=== PATIENT | male | born 1965 | race Caucasian/White ===

== ENCOUNTER 2020-07-05 13:16 | Inpatient (IN) ==
[2020-07-05 14:09] LABS: ABG BASE EXCESS 3.9 mmol/L (-2.0-2.0); ABG HCO3 27.7 mmol/L (22-26)
[2020-07-05 14:10] LABS: ABG ALLEN TEST POS
--- NOTE | 2020-07-05 14:11 | RAD ---
HISTORYCough SOBSTUDYAP chestCOMPARISONNoneFINDINGSThe heart is upper normal in size. There are bilateral patchy-nodular pulmonary infiltrates throughout both lungs. There is no evidence for pneumothorax or pleural fluid. No adenopathy is seen.IMPRESSIONBilateral pulmonary densities consistent with extensive multifocal pneumonia.Electronically signed by: BHARAT RIVAS (Jul 05, 2020 14:09:52)
[2020-07-05 14:19] LABS: BASOPHILS % (AUTO) 0.1 % (0.2-1.0); HEMATOCRIT 41.2 % (42.0-54.0); LYMPHOCYTES # (AUTO) 0.5 X10^3/uL (1.3-2.9); LYMPHOCYTES % (AUTO) 6.4 % (21.0-51.0); MEAN CORPUSCULAR HEMOGLOBIN 29.7 pg (27.0-34.0); MEAN CORPUSCULAR HGB CONC 33.9 g/dL (33.0-35.0); MEAN CORPUSCULAR VOLUME 87.5 fL (80.0-100.0); MEAN PLATELET VOLUME 7.4 fL (7.4-11.0); MONOCYTES # (AUTO) 0.4 x10^3/uL (0.3-0.8); MONOCYTES % (AUTO) 5.3 % (0.0-13.0); NEUTROPHILS # (AUTO) 7.1 x10^3/uL (2.2-4.8); NEUTROPHILS % (AUTO) 88.2 % (42.0-75.0); PLATELET COUNT 183 X10^3/uL (150.0-450.0); RED BLOOD COUNT 4.71 X10^6/uL (4.7-6.0); RED CELL DISTRIBUTION WIDTH 14.9 % (11.6-16.5)
[2020-07-05] MEDS ORDERED: TESSALON PERLES PO ONE ×2 (14:27→14:53)
[2020-07-05] MEDS ORDERED: DECADRON INJ PRESERVATIVE-FREE IVP ONE (14:27)
[2020-07-05 14:33] LABS: ALANINE AMINOTRANSFERASE 52 Units/L (12-78); ALBUMIN 3.3 g/dL (3.4-5.0); ALKALINE PHOSPHATASE 59 Units/L (46-116); ASPARTATE AMINO TRANSFERASE 43 Units/L (15-37); BLOOD UREA NITROGEN 13 mg/dL (7-18); CALCIUM 8.7 mg/dL (8.5-10.1); CARBON DIOXIDE 25.9 mmol/L (21-32); CHLORIDE 99 mmol/L (98-107); COR CA(FOR HYPOALB) 9.3 mg/dL (8.5-10.1); COR NA(FOR HYPERGLY) 135 mmol/L (136-145); SODIUM 135 mmol/L (136-145); TOTAL PROTEIN 7.3 g/dL (6.4-8.2); eGFR NON BLACK RACES > 60 (>60)
[2020-07-05 14:39] LABS: LACTIC ACID 1.5 mmol/L (0.4-2.0)
--- NOTE | 2020-07-05 14:42 | DR.SOBA ---
HPI Time Seen Time Seen by Provider: 07/05/20 13:56 Primary Care Physician Primary Care Physician: DAKOTAH HPI Comment HPI Comment: According to pt he was diagnosed with covid 19 .has had several doses of azithromax,medrol dose pack and hydroxychloroquine.pt was feeling some better .Has noticed increased cough ,shortness of breath with decreased oxygen sat today.called his FP and was advised to come to Er Complaints Chief Complaint:: PT C/O INCREASED SHORTNESS OF BREATH AND INCREASED COUGHING. P T STATES HE WAS TESTED POSITIVE FOR THE COVID 10 DAYS AGO. PT STATES HE HAS BEEN ON THE ROUTINE COVID MEDICATION REGINEMENT, BUT IS NOT GETTING BETTER ONLY GETTING WORSE COVID-19 Coronavirus risk:travel/contact w/high risk person: Yes Has patient experienced Coronavirus symptoms: Yes Coronavirus symptoms experienced: Coughing and Shortness of Breath Source History Provided: Patient Mode of Arrival Mode of Arrival: Ambulatory Timing Onset of Chief Complaint: 07/02/20 PMH PMH Past Medical History: Yes Past Medical History: Dyslipidemia, GERD, Gout, Hypertension and Kidney Stones Past Surgical History: Yes Past Surgical History Comment: HERNIA REPAIR X2, Family History History of Family Medical Conditions: No Social History Does any household member use tobacco: No Alcohol Use: None Do you use any recreational Drugs:: No Lives With: Family Lives Where: Home Travel Risk Coronavirus risk:travel/contact w/high risk person: Yes Has patient experienced Coronavirus symptoms: Yes Coronavirus symptoms experienced: Coughing and Shortness of Breath Infectious screening In the last 2 months have you had wt loss of >10#?: NO Have you had fever, night sweats or hemotysis?: No Have you traveled outside the country in the last 6 months?: No Isolation: Droplet ROS Review of Systems Constitutional: Weakness Eyes: No Symptoms Reported ENTM: No Symptoms Reported Respiratoy: Dry Cough and Short of Breath Cardiovascular: No Symptoms Reported Gastrointestinal/Abdominal: No Symptoms Reported Genitourinary: No Symptoms Reported Neurological: No Symptoms Reported Musculoskeletal: Muscle Pain Integumentary: No Symptoms Reported Hematologic/Lymphatic: No Symptoms Reported Endocrine: No Symptoms Reported Psychiatric: No Symptoms Reported PE Vital Signs Vitals: Temperature 98.3 F Pulse Rate 111 Respiratory Rate 28 Blood Pressure 158/79 O2 Sat by Pulse Oximetry 93 General Limitations: No Limitations General Appearance: Alert, Anxious and In Distress Head Head Exam: Normal Inspection, Atraumatic and Normocephalic Eyes Eye exam: Normal Appearance and PERRL ENT ENT Exam: Normal Exam, Mucous Membranes Dry and Other (low lying oropharynx) Neck Neck Exam: Full ROM Respiratory Respiratory Exam: Normal Lung Sounds Bilat Cardiovascular Cardiovascular Exam: +S1 and +S2 Abdominal Exam Abdominal Exam: Normal Inspection Extremities Extremities Exam: Normal Inspection Neurologic Neurological Exam: Alert and Oriented X3 MDM Additional Information Obtained Additional Findings:: cough,hypoxia ,covid 19 pos ,shortness of breath COURSE Treatment Treatment: iv dexamethasone,tessalon perles ,oxygen 3l ROR Labs Reviewed Result Diagrams: 07/05/20 14:05 07/05/20 14:10 Laboratory: WBC 8.0 X10^3/uL (3.6-10.0) 07/05/20 14:05 RBC 4.71 X10^6/uL (4.7-6.0) 07/05/20 14:05 Hgb 14.0 g/dL (13.5-18.0) 07/05/20 14:05 Hct 41.2 % (42.0-54.0) L 07/05/20 14:05 MCV 87.5 fL (80.0-100.0) 07/05/20 14:05 MCH 29.7 pg (27.0-34.0) 07/05/20 14:05 MCHC 33.9 g/dL (33.0-35.0) 07/05/20 14:05 RDW 14.9 % (11.6-16.5) 07/05/20 14:05 Plt Count 183 X10^3/uL (150.0-450.0) 07/05/20 14:05 MPV 7.4 fL (7.4-11.0) 07/05/20 14:05 Neut % (Auto) 88.2 % (42.0-75.0) H 07/05/20 14:05 Lymph % (Auto) 6.4 % (21.0-51.0) L 07/05/20 14:05 Hood % (Auto) 5.3 % (0.0-13.0) 07/05/20 14:05 Eos % (Auto) 0.0 % (0.9-2.9) L 07/05/20 14:05 Baso % (Auto) 0.1 % (0.2-1.0) L 07/05/20 14:05 Neut # (Auto) 7.1 x10^3/uL (2.2-4.8) H 07/05/20 14:05 Lymph # (Auto) 0.5 X10^3/uL (1.3-2.9) L 07/05/20 14:05 Hood # (Auto) 0.4 x10^3/uL (0.3-0.8) 07/05/20 14:05 Eos # (Auto) 0.0 x10^3/uL (0.0-0.2) 07/05/20 14:05 Baso # (Auto) 0.0 X10^3/uL (0.0-0.1) 07/05/20 14:05 Absolute Nucleated RBC 0.0 /100WBC 07/05/20 14:05 Sample Site Lr 07/05/20 14:00 ABG pH 7.470 (7.35-7.45) H 07/05/20 14:00 ABG pCO2 38.0 mmHg (35.0-45.0) 07/05/20 14:00 ABG pO2 54.0 mmHg (80.0-100.0) L 07/05/20 14:00 ABG HCO3 27.7 mmol/L (22-26) H 07/05/20 14:00 ABG O2 Saturation 90.0 % (90-100) 07/05/20 14:00 ABG Base Excess 3.9 mmol/L (-2.0-2.0) H 07/05/20 14:00 Van Test Pos 07/05/20 14:00 A-a Gradient 48.0 mmHg 07/05/20 14:00 FiO2 21.0 07/05/20 14:00 Blood Gas Comments Pt sussy well. cdn 07/05/20 14:00 Sodium 135 mmol/L (136-145) L 07/05/20 14:10 Corrected Sodium 135 mmol/L (136-145) L 07/05/20 14:10 Potassium 4.0 mmol/L (3.5-5.1) 07/05/20 14:10 Chloride 99 mmol/L (98-107) 07/05/20 14:10 Carbon Dioxide 25.9 mmol/L (21-32) 07/05/20 14:10 BUN 13 mg/dL (7-18) 07/05/20 14:10 Creatinine 1.00 mg/dL (0.70-1.30) 07/05/20 14:10 Est GFR (MDRD) Af Amer > 60 (>60) 07/05/20 14:10 Est GFR (MDRD) Non-Af > 60 (>60) 07/05/20 14:10 Glucose 117 mg/dL (65-99) H 07/05/20 14:10 Lactic Acid 1.5 mmol/L (0.4-2.0) 07/05/20 14:10 Calcium 8.7 mg/dL (8.5-10.1) 07/05/20 14:10 Corrected Calcium 9.3 mg/dL (8.5-10.1) 07/05/20 14:10 Total Bilirubin 0.70 mg/dL (0.2-1.0) 07/05/20 14:10 AST 43 Units/L (15-37) H 07/05/20 14:10 ALT 52 Units/L (12-78) 07/05/20 14:10 Alkaline Phosphatase 59 Units/L (46-116) 07/05/20 14:10 C-Reactive Protein 94.00 mg/L (0-3.0) H 07/05/20 14:10 Total Protein 7.3 g/dL (6.4-8.2) 07/05/20 14:10 Albumin 3.3 g/dL (3.4-5.0) L 07/05/20 14:10 Globulin 4.0 g/dL (2.5-4.5) 07/05/20 14:10 Albumin/Globulin Ratio 0.8 Ratio (1.1-2.1) L 07/05/20 14:10 Opioid Opioid Risk Tool Age (Jamil box if 16-45): No History of Preadolescent Sexual Abuse: No Total: 0 Total Score Risk Category: Low Risk Copyright: Kirby CHENG predicting aberrant behaviors
[2020-07-05] MEDS ORDERED: DECADRON INJ ONE (14:53)
--- NOTE | 2020-07-05 14:58 | DR.SOBA ---
HPI Time Seen Time Seen by Provider: 07/05/20 13:56 Primary Care Physician Primary Care Physician: DAKOTHA HPI Comment HPI Comment: According to pt he has hx of covid 19 for at least 10 days. Pt has had several doses of z pack, has been on hydroxychloroquine and completed course of Medrol dose pack. However has noticed persistent cough with increased shortness of breath with drop in in oxygen. Called FP and advised to come to ER Complaints Chief Complaint:: PT C/O INCREASED SHORTNESS OF BREATH AND INCREASED COUGHING. PT STATES HE WAS TESTED POSITIVE FOR THE COVID 10 DAYS AGO. PT STATES HE HAS BEEN ON THE ROUTINE COVID MEDICATION REGINEMENT, BUT IS NOT GETTING BETTER ONLY GETTING WORSE COVID-19 Coronavirus risk:travel/contact w/high risk person: Yes Has patient experienced Coronavirus symptoms: Yes Coronavirus symptoms experienced: Coughing and Shortness of Breath Source History Provided: Patient Mode of Arrival Mode of Arrival: Ambulatory Timing Onset of Chief Complaint: 07/02/20 PMH PMH Past Medical History: Yes Past Medical History: Dyslipidemia, GERD, Gout, Hypertension and Kidney Stones Past Surgical History: Yes Past Surgical History Comment: HERNIA REPAIR X2, Family History History of Family Medical Conditions: No Social History Does any household member use tobacco: No Alcohol Use: None Do you use any recreational Drugs:: No Lives With: Family Lives Where: Home Travel Risk Coronavirus risk:travel/contact w/high risk person: Yes Has patient experienced Coronavirus symptoms: Yes Coronavirus symptoms experienced: Coughing and Shortness of Breath Infectious screening In the last 2 months have you had wt loss of >10#?: NO Have you had fever, night sweats or hemotysis?: No Have you traveled outside the country in the last 6 months?: No Isolation: Droplet ROS Review of Systems Constitutional: Fever and Fatigue Eyes: No Symptoms Reported ENTM: No Symptoms Reported Respiratoy: Dry Cough and Short of Breath Gastrointestinal/Abdominal: No Symptoms Reported Genitourinary: No Symptoms Reported Neurological: No Symptoms Reported Musculoskeletal: No Symptoms Reported Integumentary: No Symptoms Reported Hematologic/Lymphatic: No Symptoms Reported Endocrine: No Symptoms Reported Psychiatric: No Symptoms Reported PE Vital Signs Vitals: Temperature 98.3 F Pulse Rate 107 Respiratory Rate 28 Blood Pressure 153/82 O2 Sat by Pulse Oximetry 93 General Limitations: No Limitations General Appearance: Alert and In Distress Head Head Exam: Normal Inspection Eyes Eye exam: Normal Appearance ENT ENT Exam: Mucous Membranes Moist and Other (low lying oropharynx ) Neck Neck Exam: Normal Inspection and Full ROM Respiratory Respiratory Exam: Normal Lung Sounds Bilat and Accessory Muscle Use Cardiovascular Cardiovascular Exam: Tachycardia, +S1 and +S2 Abdominal Exam Abdominal Exam: Normal Inspection, Normal Bowel Sounds and Soft Extremities Extremities Exam: Normal Inspection and Full ROM Neurologic Neurological Exam: Alert and Oriented X3 Skin Skin Exam: Warm MDM Additional Information Obtained Additional Findings:: covid 19,shortness of breath ,hypoxia,tacchycardia ,sleep apnea COURSE Treatment Treatment: IV decadron 4 mg ,oxygen to maintain oxygen sat over 94%,tessalon perles ,Ferritin elevated ,crp 94 .lactic acid 1.5 ROR Labs Reviewed Laboratory Results Reviewed?: Yes Result Diagrams: 07/05/20 14:05 07/05/20 14:10 Laboratory: WBC 8.0 X10^3/uL (3.6-10.0) 07/05/20 14:05 RBC 4.71 X10^6/uL (4.7-6.0) 07/05/20 14:05 Hgb 14.0 g/dL (13.5-18.0) 07/05/20 14:05 Hct 41.2 % (42.0-54.0) L 07/05/20 14:05 MCV 87.5 fL (80.0-100.0) 07/05/20 14:05 MCH 29.7 pg (27.0-34.0) 07/05/20 14:05 MCHC 33.9 g/dL (33.0-35.0) 07/05/20 14:05 RDW 14.9 % (11.6-16.5) 07/05/20 14:05 Plt Count 183 X10^3/uL (150.0-450.0) 07/05/20 14:05 MPV 7.4 fL (7.4-11.0) 07/05/20 14:05 Neut % (Auto) 88.2 % (42.0-75.0) H 07/05/20 14:05 Lymph % (Auto) 6.4 % (21.0-51.0) L 07/05/20 14:05 Leake % (Auto) 5.3 % (0.0-13.0) 07/05/20 14:05 Eos % (Auto) 0.0 % (0.9-2.9) L 07/05/20 14:05 Baso % (Auto) 0.1 % (0.2-1.0) L 07/05/20 14:05 Neut # (Auto) 7.1 x10^3/uL (2.2-4.8) H 07/05/20 14:05 Lymph # (Auto) 0.5 X10^3/uL (1.3-2.9) L 07/05/20 14:05 Leake # (Auto) 0.4 x10^3/uL (0.3-0.8) 07/05/20 14:05 Eos # (Auto) 0.0 x10^3/uL (0.0-0.2) 07/05/20 14:05 Baso # (Auto) 0.0 X10^3/uL (0.0-0.1) 07/05/20 14:05 Absolute Nucleated RBC 0.0 /100WBC 07/05/20 14:05 Sample Site Lr 07/05/20 14:00 ABG pH 7.470 (7.35-7.45) H 07/05/20 14:00 ABG pCO2 38.0 mmHg (35.0-45.0) 07/05/20 14:00 ABG pO2 54.0 mmHg (80.0-100.0) L 07/05/20 14:00 ABG HCO3 27.7 mmol/L (22-26) H 07/05/20 14:00 ABG O2 Saturation 90.0 % (90-100) 07/05/20 14:00 ABG Base Excess 3.9 mmol/L (-2.0-2.0) H 07/05/20 14:00 Van Test Pos 07/05/20 14:00 A-a Gradient 48.0 mmHg 07/05/20 14:00 FiO2 21.0 07/05/20 14:00 Blood Gas Comments Pt sussy well. cdn 07/05/20 14:00 Sodium 135 mmol/L (136-145) L 07/05/20 14:10 Corrected Sodium 135 mmol/L (136-145) L 07/05/20 14:10 Potassium 4.0 mmol/L (3.5-5.1) 07/05/20 14:10 Chloride 99 mmol/L (98-107) 07/05/20 14:10 Carbon Dioxide 25.9 mmol/L (21-32) 07/05/20 14:10 BUN 13 mg/dL (7-18) 07/05/20 14:10 Creatinine 1.00 mg/dL (0.70-1.30) 07/05/20 14:10 Est GFR (MDRD) Af Amer > 60 (>60) 07/05/20 14:10 Est GFR (MDRD) Non-Af > 60 (>60) 07/05/20 14:10 Glucose 117 mg/dL (65-99) H 07/05/20 14:10 Lactic Acid 1.5 mmol/L (0.4-2.0) 07/05/20 14:10 Calcium 8.7 mg/dL (8.5-10.1) 07/05/20 14:10 Corrected Calcium 9.3 mg/dL (8.5-10.1) 07/05/20 14:10 Ferritin 883 ng/mL (26-388) H 07/05/20 14:05 Total Bilirubin 0.70 mg/dL (0.2-1.0) 07/05/20 14:10 AST 43 Units/L (15-37) H 07/05/20 14:10 ALT 52 Units/L (12-78) 07/05/20 14:10 Alkaline Phosphatase 59 Units/L (46-116) 07/05/20 14:10 C-Reactive Protein 94.00 mg/L (0-3.0) H 07/05/20 14:10 Total Protein 7.3 g/dL (6.4-8.2) 07/05/20 14:10 Albumin 3.3 g/dL (3.4-5.0) L 07/05/20 14:10 Globulin 4.0 g/dL (2.5-4.5) 07/05/20 14:10 Albumin/Globulin Ratio 0.8 Ratio (1.1-2.1) L 07/05/20 14:10 XRAY X-ray Results: infiltrate multiple more suggestive of covid 19 Opioid Opioid Risk Tool Age (Jamil box if 16-45): No History of Preadolescent Sexual Abuse: No Total: 0 Total Score Risk Category: Low Risk Copyright: Kirby CHENG predicting aberrant behaviors
[2020-07-05] MEDS ORDERED: REMDESIVIR (INVESTIGATIONAL DRUG GS-5734) 200 MG in NS 250 ML IV 250 ML IV SCH (15:37)
[2020-07-05] MEDS: NS 1000 ML 1,000 ML IV SCH (18:46)
[2020-07-05] MEDS ORDERED: SOLU-Medrol 125 MG VIAL ONE (19:49)
[2020-07-05] MEDS ORDERED: TYLENOL 325 MG TAB PO ONE (20:44)
[2020-07-05] MEDS ORDERED: TUSSIONEX PENNKINETIC SUSP ONE (20:45)
[2020-07-05] MEDS ORDERED: SOLU-Medrol 125 MG VIAL IVP ONE (21:00)
[2020-07-05] MEDS: PULMICORT NEB TX 0.5 MG NEB SCH (21:05)
[2020-07-05] MEDS: MUCOMYST (RESPIRATORY USE ONLY) NEB SCH (21:05)
[2020-07-05] MEDS: DUONEB 0.5 MG/3 MG (3 mL) NEB SCH (21:05)
[2020-07-05] MEDS ORDERED: TUSSIONEX PENNKINETIC SUSP PO PRN (21:21)
[2020-07-05] MEDS: TYLENOL 325 MG TAB PO PRN (21:42)
[2020-07-05 22:41] LABS: BILIRUBIN,URINE NEGATIVE (NEGATIVE); BLOOD/HEMOGLOBIN,URINE NEGATIVE (NEGATIVE); GLUCOSE, URINE NEGATIVE (NEGATIVE); KETONES,URINE NEGATIVE (NEGATIVE); LEUKOCYTE ESTERASE ,URINE NEGATIVE (NEGATIVE); NITRITES,URINE NEGATIVE (NEGATIVE); PH,URINE 6.5 (5.0 - 8.0); PROTEIN,URINE 1+ (NEGATIVE); UROBILINOGEN,URINE 2+ (NORMAL)
[2020-07-05 22:46] LABS: APPEARANCE,URINE CLEAR (CLEAR); BACTERIA,URINE NEGATIVE /HPF (NEGATIVE); COLOR,URINE DARK YELLOW (YELLOW); RBC,URINE 0-2 /HPF (0-3); SQUAMOUS EPITHELIAL CELL,UR RARE /HPF (NEGATIVE)
[2020-07-06] MEDS ORDERED: SOLU-Medrol 40 MG VIAL ONE (04:26)
[2020-07-06 04:54] LABS: ABG BASE EXCESS 0.5 mmol/L (-2.0-2.0); ABG HCO3 25.4 mmol/L (22-26)
[2020-07-06 04:55] LABS: ABG ALLEN TEST POS
[2020-07-06] MEDS: SOLU-Medrol 40 MG VIAL IVP SCH ×3 (05:17→21:54)
[2020-07-06 05:39] LABS: BASOPHILS % (AUTO) 0.1 % (0.2-1.0); HEMATOCRIT 39.4 % (42.0-54.0); HEMOGLOBIN 13.6 g/dL (13.5-18.0); LYMPHOCYTES # (AUTO) 0.5 X10^3/uL (1.3-2.9); LYMPHOCYTES % (AUTO) 8.2 % (21.0-51.0); MEAN CORPUSCULAR HEMOGLOBIN 30.3 pg (27.0-34.0); MEAN CORPUSCULAR HGB CONC 34.5 g/dL (33.0-35.0); MEAN CORPUSCULAR VOLUME 87.7 fL (80.0-100.0); MEAN PLATELET VOLUME 7.8 fL (7.4-11.0); MONOCYTES # (AUTO) 0.1 x10^3/uL (0.3-0.8); MONOCYTES % (AUTO) 2.5 % (0.0-13.0); NEUTROPHILS # (AUTO) 5.2 x10^3/uL (2.2-4.8); NEUTROPHILS % (AUTO) 89.2 % (42.0-75.0); PLATELET COUNT 192 X10^3/uL (150.0-450.0); RED BLOOD COUNT 4.49 X10^6/uL (4.7-6.0); RED CELL DISTRIBUTION WIDTH 15.2 % (11.6-16.5); WHITE BLOOD COUNT 5.9 X10^3/uL (3.6-10.0)
[2020-07-06 05:55] LABS: ALANINE AMINOTRANSFERASE 47 Units/L (12-78); ALKALINE PHOSPHATASE 58 Units/L (46-116); ASPARTATE AMINO TRANSFERASE 39 Units/L (15-37); BLOOD UREA NITROGEN 16 mg/dL (7-18); CALCIUM 8.8 mg/dL (8.5-10.1); CARBON DIOXIDE 25.2 mmol/L (21-32); CHLORIDE 101 mmol/L (98-107); COR CA(FOR HYPOALB) 9.6 mg/dL (8.5-10.1); COR NA(FOR HYPERGLY) 137 mmol/L (136-145); SODIUM 135 mmol/L (136-145); TOTAL PROTEIN 7.1 g/dL (6.4-8.2); eGFR NON BLACK RACES > 60 (>60)
[2020-07-06] MEDS: DUONEB 0.5 MG/3 MG (3 mL) NEB SCH ×3 (05:57→20:25)
[2020-07-06] MEDS: MUCOMYST (RESPIRATORY USE ONLY) NEB SCH ×3 (05:57→20:25)
[2020-07-06] MEDS: NS 1000 ML 1,000 ML IV SCH ×3 (08:07→18:29)
[2020-07-06] MEDS: PULMICORT NEB TX 0.5 MG NEB SCH ×2 (09:30→20:25)
[2020-07-06] MEDS: REMDESIVIR (INVESTIGATIONAL DRUG GS-5734) 100 MG in NS 250 ML IV 250 ML IV SCH (12:30)
--- NOTE | 2020-07-06 14:06 | RAD ---
HISTORYcovid 19, hypoxia, pneumoniaSTUDYCHEST, 1 VIEWCOMPARISONAre 20FINDINGSThe trachea is midline. The cardiac silhouette is unremarkable . The lungs demonstrate bilateral multifocal airspace opacities unchanged given differences in technique. The bony thorax is unremarkable.IMPRESSIONStable multifocal pneumonia.Electronically signed by: FADIA GARRIDO (Jul 06, 2020 14:05:37)
[2020-07-06] MEDS: LOMOTIL PO PRN (17:00)
[2020-07-06] MEDS: TYLENOL 325 MG TAB PO PRN (21:55)
[2020-07-06] MEDS: ROBITUSSIN DM PO PRN (21:55)
[2020-07-07] MEDS: NS 1000 ML 1,000 ML IV SCH ×3 (02:08→19:15)
[2020-07-07 04:59] LABS: BASOPHILS % (AUTO) 0.2 % (0.2-1.0); HEMOGLOBIN 13.3 g/dL (13.5-18.0); LYMPHOCYTES # (AUTO) 0.7 X10^3/uL (1.3-2.9); LYMPHOCYTES % (AUTO) 7.5 % (21.0-51.0); MEAN CORPUSCULAR HEMOGLOBIN 29.4 pg (27.0-34.0); MEAN CORPUSCULAR HGB CONC 33.2 g/dL (33.0-35.0); MEAN CORPUSCULAR VOLUME 88.6 fL (80.0-100.0); MEAN PLATELET VOLUME 7.8 fL (7.4-11.0); MONOCYTES # (AUTO) 0.6 x10^3/uL (0.3-0.8); MONOCYTES % (AUTO) 6.9 % (0.0-13.0); NEUTROPHILS % (AUTO) 85.4 % (42.0-75.0); PLATELET COUNT 236 X10^3/uL (150.0-450.0); RED BLOOD COUNT 4.51 X10^6/uL (4.7-6.0); RED CELL DISTRIBUTION WIDTH 15.2 % (11.6-16.5); WHITE BLOOD COUNT 9.4 X10^3/uL (3.6-10.0)
[2020-07-07 04:59] LABS: ABG ALLEN TEST POS; ABG BASE EXCESS 1.2 mmol/L (-2.0-2.0)
[2020-07-07 05:13] LABS: ALANINE AMINOTRANSFERASE 47 Units/L (12-78); ALBUMIN 2.9 g/dL (3.4-5.0); ALKALINE PHOSPHATASE 55 Units/L (46-116); ASPARTATE AMINO TRANSFERASE 34 Units/L (15-37); BLOOD UREA NITROGEN 16 mg/dL (7-18); CALCIUM 8.3 mg/dL (8.5-10.1); CARBON DIOXIDE 27.2 mmol/L (21-32); CHLORIDE 104 mmol/L (98-107); COR CA(FOR HYPOALB) 9.2 mg/dL (8.5-10.1); COR NA(FOR HYPERGLY) 140 mmol/L (136-145); SODIUM 138 mmol/L (136-145); TOTAL PROTEIN 6.8 g/dL (6.4-8.2); eGFR NON BLACK RACES > 60 (>60)
[2020-07-07] MEDS: SOLU-Medrol 40 MG VIAL IVP SCH ×3 (05:54→21:21)
--- NOTE | 2020-07-07 06:06 | RAD ---
HISTORYSOB, COVID, PNEUMONIA, HYPOXIASTUDYCHEST, 1 [id number] view of the chestFINDINGSThe cardiac silhouette is mildly enlarged but stable. Stable bilateral airspace and interstitial opacities scattered throughout. No pleural effusion or pneumothorax.IMPRESSIONNo significant change.Electronically signed by: Dusty Danielle (Jul 07, 2020 06:05:26)
[2020-07-07] MEDS: MUCOMYST (RESPIRATORY USE ONLY) NEB SCH ×3 (06:36→20:15)
[2020-07-07] MEDS: XOPENEX 1.25 MG/3 ML NEBULE NEB SCH ×3 (06:36→20:15)
[2020-07-07] MEDS: PULMICORT NEB TX 0.5 MG NEB SCH ×2 (08:40→20:15)
[2020-07-07] MEDS ORDERED: REMDESIVIR (INVESTIGATIONAL DRUG GS-5734) IV ONE (09:51)
[2020-07-07] MEDS: REMDESIVIR (INVESTIGATIONAL DRUG GS-5734) 100 MG in NS 250 ML IV 250 ML IV SCH (09:53)
[2020-07-07] MEDS: ROBITUSSIN DM PO PRN ×2 (10:05→17:25)
[2020-07-07] MEDS ORDERED: LASIX PO PRN (10:25)
[2020-07-07] MEDS ORDERED: NS 250 ML IV 250 ML IV ONE (13:40)
[2020-07-07] MEDS: LIPITOR TAB 40 MG PO SCH (14:05)
[2020-07-07] MEDS: PROTONIX TAB 40 MG PO SCH (14:06)
[2020-07-07] MEDS: ZYLOPRIM PO SCH (14:06)
[2020-07-07] MEDS: VASOTEC TAB 10 MG PO SCH (14:10)
[2020-07-07] MEDS ORDERED: SOLU-Medrol 125 MG VIAL ONE (14:24)
[2020-07-07] MEDS: LOVENOX INJ 40 MG SYR SC SCH (15:31)
[2020-07-07] MEDS: LOMOTIL PO PRN (17:53)
--- NOTE | 2020-07-07 21:49 | DR.H&P ---
H&P - History & Physical for Day of: H&P Date: 07/05/20 - Chief Complaint Chief Complaint: COUGH, SOB, FEVER, WEAKNESS, COVID-19 - History of Present Illness History of Present Illness: IS A 55 YEAR OLD PATIENT OF OURS WHO PRESENTED TO THE ER WITH REPORTS OF INCREASED SHORTNESS OF BREATH, INCREASED COUGH, FEVER, AND WEAKNESS. HE REPORTS TESTING POSITIVE FOR COVID-19 APPROXIMATELY ONE WEEK AGO. HE REPORTS DECREASED OXYGEN SATURATIONS AT HOME. HE HAS BEEN TAKING AZITHROMYCIN, A MEDROL DOSEPACK, NEB [place], SYMBICORT, COUGH MEDICATIONS, AND HYDROXYCHLOROQUINE AT HOME, BUT DENIES IMPROVEMENT IN SYMPTOMS. HIS PAST MEDICAL HISTORY INCLUDES: DYSLIPIDEMIA, GERD, GOUT, HYPERTENSION, KIDNEY STONES, AND HERNIA REPAIR X 2. ON ARRIVAL TO THE ER, VITALS WERE 98.3-117-28-86%RA-158/79. LABS WERE OBTAINED. ABNORMAL LAB VALUES INCLUDE THE FOLLOWING: HCT 41.2, FERRITIN 883, SODIUM 135, GLUCOSE 117, AST 43, CRP 94.0, ALBUMIN 3.3. URINALYSIS IS UNREMARKABLE. AN ABG WAS OBTAINED AND REVEALED: PH 7.470, PC02 38.0, P02 54.0, HC03 27.7, 02 SAT 90, BASE EXCESS 3.9, FI02 21.0. BLOOD AND SPUTUM CULTURES WERE SET UP. A CHEST XRAY WAS OBTAINED AND REVEALED: Bilateral pulmonary densities consistent with extensive multifocal pneumonia. EKG REVEALED: SINUS TACHYCARDIA WITH HR 108. HE WAS PLACED ON NASAL CANNULA AT 2L/MIN. OXYGEN SATURATIONS DID INCREASE TO 91%. HE WAS GIVEN SOLU-MEDROL 125MG IV X 1, DECADRON 4MG IV 1, AND TESSALON 200MG X 1 IN THE ER. HE REPORTED SLIGHT IMPROVEMENT IN SYMPTOMS. HE WAS ADMITTED FOR FURTHER EVALUATION AND TREATMENT OF PNEUMONIA DUE TO COVID-19 AND HYPOXIA. HE WAS STARTED ON NS AT 125ML/HR, REMDESIVIR 200MG IV X 1, THEN 100MG IV DAILY, SOLU-MEDROL 80MG IV Q8H, XOPENEX NEBS TID, PULMICORT NEBS BID, MUCOMYST IN NEB [place] BID, LOVENOX 40MG SC DAILY, TUSSIONEX 5ML PO Q12H, ROBITUSSIN DM 10ML PO QID, AND HOME MEDICATIONS WERE RESUMED. OTHERWISE, WE PLAN TO FOLLOW UP WITH AM LABS, CHEST XRAY, AND ABG AND CONTINUE TO MONITOR. - Past Medical History Past Medical History: Hypertension, Dyslipidemia, GERD, Kidney Stones, Gout - Past Surgical History Surgical History: Other - Family History Family Medical History: Cancer, Hypertension - Social History Does patient currently use any type of tobacco product: No Have you used tobacco products in the last 12 months: No Type of Tobacco Use: None Does any household member use tobacco: No Alcohol Use: None Drug Use: None - Medications Home Medications: No Known Drug Allergies Allergy (Verified 07/05/20 13:23) CONTINUE taking the following medications allopurinol 300 mg PO DAILY 07/05/20 [History] atorvastatin 40 mg PO DAILY 07/05/20 [History] budesonide-formoterol [Symbicort] 2 puff INHALATION BID 07/05/20 [History] codeine-guaifenesin 10 ml PO Q4HR PRN 07/05/20 [History] enalapril maleate 10 mg PO DAILY 07/05/20 [History] furosemide 20 mg PO PRN PRN 07/05/20 [History] hydroxychloroquine 200 mg PO BID 07/05/20 [History] ipratropium-albuterol 3 ml INHALATION Q6H PRN 07/05/20 [History] pantoprazole 40 mg PO DAILY 07/05/20 [History] - Review of Systems Constitutional: See HPI, Fever, Weakness Eyes: No Symptoms Reported ENT: No Symptoms Reported Respiratory: See HPI, Cough, Shortness of Breath, SOB with Excertion, Wheezing Cardiovascular: No Symptoms Reported Gastrointestinal: No Symptoms Reported Genitourinary: No Symptoms Reported Musculoskeletal: No Symptoms Reported Skin: No Symptoms Reported Neurological: Weakness - Physical Exam Vital Signs: Temperature 98.3 F Pulse Rate [Right Radial] 115 Pulse Rate 108 Respiratory Rate 22 Blood Pressure [Left Arm] 153/90 Blood Pressure 152/73 O2 Sat by Pulse Oximetry 90 Oriented: Normal Eyes: Normal Ear: Normal Nose: Normal Throat: Normal Respiratory: Wheezes Throughout Cardiovascular: Normal : Normal Auscultation: Bowel Sounds: Normal Palpation: Normal Tenderness: Normal Skin: Normal Musculoskeletal: Normal Psychiatric: Normal Mood Description: Calm Affect: Normal Speech Pattern: Clear - Assessment/Plan (1) Pneumonia due to 2019 novel coronavirus Status: Acute Plan: NS AT 125ML/HR, REMDESIVIR 200MG IV X 1, THEN 100MG IV DAILY, SOLU-MEDROL 80MG IV Q8H, XOPENEX NEBS TID, PULMICORT NEBS BID, MUCOMYST IN NEB [place] BID, LOVENOX 40MG SC DAILY, TUSSIONEX 5ML PO Q12H, ROBITUSSIN DM 10ML PO QID, AND HOME MEDICATIONS WERE RESUMED. (2) Hypoxia Status: Acute - Allergies Allergies/Adverse Reactions: Allergies Allergy/AdvReac Type Severity Reaction Status Date / Time No Known Drug Allergies Allergy Verified 07/05/20 13:23
[2020-07-07] MEDS ORDERED: TUSSIONEX PENNKINETIC SUSP PO SCH (22:00)
[2020-07-08] MEDS: NS 1000 ML 1,000 ML IV SCH ×3 (00:07→17:37)
[2020-07-08] MEDS: LOMOTIL PO PRN ×2 (04:30→18:50)
[2020-07-08 04:56] LABS: BASOPHILS % (AUTO) 0 % (0.2-1.0); HEMATOCRIT 38.8 % (42.0-54.0); HEMOGLOBIN 12.9 g/dL (13.5-18.0); LYMPHOCYTES # (AUTO) 0.6 X10^3/uL (1.3-2.9); LYMPHOCYTES % (AUTO) 5.6 % (21.0-51.0); MEAN CORPUSCULAR HEMOGLOBIN 29.5 pg (27.0-34.0); MEAN CORPUSCULAR HGB CONC 33.3 g/dL (33.0-35.0); MEAN CORPUSCULAR VOLUME 88.6 fL (80.0-100.0); MEAN PLATELET VOLUME 7.6 fL (7.4-11.0); MONOCYTES # (AUTO) 0.7 x10^3/uL (0.3-0.8); MONOCYTES % (AUTO) 6.1 % (0.0-13.0); NEUTROPHILS # (AUTO) 9.4 x10^3/uL (2.2-4.8); NEUTROPHILS % (AUTO) 88.3 % (42.0-75.0); PLATELET COUNT 278 X10^3/uL (150.0-450.0); RED BLOOD COUNT 4.37 X10^6/uL (4.7-6.0); RED CELL DISTRIBUTION WIDTH 15.4 % (11.6-16.5); WHITE BLOOD COUNT 10.7 X10^3/uL (3.6-10.0)
[2020-07-08 04:59] LABS: ALANINE AMINOTRANSFERASE 46 Units/L (12-78); ALBUMIN 2.9 g/dL (3.4-5.0); ALKALINE PHOSPHATASE 50 Units/L (46-116); ASPARTATE AMINO TRANSFERASE 30 Units/L (15-37); BLOOD UREA NITROGEN 20 mg/dL (7-18); CALCIUM 8.3 mg/dL (8.5-10.1); CARBON DIOXIDE 24.3 mmol/L (21-32); CHLORIDE 105 mmol/L (98-107); COR CA(FOR HYPOALB) 9.2 mg/dL (8.5-10.1); COR NA(FOR HYPERGLY) 140 mmol/L (136-145); CREATININE 1.16 mg/dL (0.70-1.30); SODIUM 139 mmol/L (136-145); TOTAL PROTEIN 6.4 g/dL (6.4-8.2); eGFR NON BLACK RACES > 60 (>60)
[2020-07-08 05:14] LABS: ABG BASE EXCESS 1.9 mmol/L (-2.0-2.0); ABG HCO3 26.6 mmol/L (22-26); FRACTIONATED INSPIRED OXYGEN 40
[2020-07-08 05:15] LABS: ABG ALLEN TEST POS
[2020-07-08] MEDS: SOLU-Medrol 40 MG VIAL IVP SCH ×3 (05:21→21:05)
[2020-07-08] MEDS: XOPENEX 1.25 MG/3 ML NEBULE NEB SCH ×4 (05:42→21:15)
[2020-07-08] MEDS: MUCOMYST (RESPIRATORY USE ONLY) NEB SCH ×4 (05:42→21:15)
--- NOTE | 2020-07-08 06:00 | RAD ---
HISTORYSOBSTUDYCHEST, 1 [id number] view of the chestFINDINGSCardiac silhouette is borderline in size. No significant change in diffuse bilateral airspace and interstitial opacities. No pleural effusion or pneumothorax.IMPRESSIONNo significant change.Electronically signed by: Dusty Danielle (Jul 08, 2020 06:00:00)
[2020-07-08] MEDS: LIPITOR TAB 40 MG PO SCH (09:19)
[2020-07-08] MEDS: LOVENOX INJ 40 MG SYR SC SCH (09:19)
[2020-07-08] MEDS: PROTONIX TAB 40 MG PO SCH (09:20)
[2020-07-08] MEDS: ROBITUSSIN DM PO SCH ×4 (09:20→21:06)
[2020-07-08] MEDS: ZYLOPRIM PO SCH (09:20)
[2020-07-08] MEDS: TUSSIONEX PENNKINETIC SUSP PO SCH ×2 (09:21→21:06)
[2020-07-08] MEDS: REMDESIVIR (INVESTIGATIONAL DRUG GS-5734) 100 MG in NS 250 ML IV 250 ML IV SCH (09:21)
[2020-07-08] MEDS: VASOTEC TAB 10 MG PO SCH (09:29)
[2020-07-08] MEDS: PULMICORT NEB TX 0.5 MG NEB SCH ×2 (09:40→21:15)
[2020-07-08 14:17] VITALS: BMI 45.3
--- NOTE | 2020-07-08 14:28 | PCM.PROG ---
Progress Note - Progress Note for Day of Date of Exam: 07/07/20 - Subjective Subjective: IS BEING TREATED FOR PNEUMONIA DUE TO COVID-19 AND HYPOXIA. TODAY, HE IS ALERT AND ORIENTED, LYING IN BED ON MORNING ROUNDS. HE CONTINUES WITH COMPLAINTS OF COUGH, SHORNTESS OF BREATH, AND WEAKNESS. HE DENIES SIGNIFICANT IMPROVEMENT SINCE YESTERDAY. ON EXAMINATION, HEART IS REGULAR IN RATE AND RHYTHM. BILATERAL LUNGS ARE NOTED WITH SCATTERED WHEEZING THROUGHOUT. ABDOMEN IS ROUND, SOFT, AND NON-TENDER WITH NORMAL BOWEL SOUNDS NOTED IN ALL QUADRANTS. HIS VITALS THIS MORNING ARE: 98.2-102-18-94%-151/72. LABS WERE OBTAINED. ABNORMAL LAB VALUES INCLUDE THE FOLLOWING: RBC 4.51, HGB 13.3, HCT 40.0, GLUCOSE 163, CALCIUM 8.3, FERRITIN 1423, CRP 40.80, ALUBMIN 2.9. BLOOD AND SPUTUM CULTURES ARE PENDING. A CHEST XRAY WAS OBTAINED AND REVEALED: The cardiac silhouette is mildly enlarged but stable. Stable bilateral airspace and interstitial opacities scattered throughout. No pleural effusion or pneumothorax. HE IS CURRENTLY RECEIVING NS AT 125ML/HR, REMDESIVIR 100MG IV DAILY, SOLU-MEDROL 80MG IV Q8H, XOPENEX NEBS TID, PULMICORT NEBS BID, MUCOMYST IN NEB [place] BID, LOVENOX 40MG SC DAILY, TUSSIONEX 5ML PO Q12H, ROBITUSSIN DM 10ML PO QID, AND HOME MEDICATIONS WERE RESUMED. WE HAVE ORDERED A UNIT OF CONVALESCENT PLASMA THAT IS TO BE ADMINISTERED WHEN AVAILABLE. WE WILL CONTINUE WITH CURRENT PLAN OF CARE TODAY. OTHERWISE, WE PLAN TO FOLLOW UP WITH AM LABS, CHEST XRAY, AND ABG AND CONTINUE TO MONITOR. - Past Medical Family Social History Past Med/Fam/Surg Hx: No changes since H&P Allergies: Allergies No Known Drug Allergies Allergy (Verified 07/05/20 13:23) - Review of Systems ROS: No change since H&P - Vital Signs and I&O's Vital Signs: Temperature 98.0 F Pulse Rate [Right Radial] 97 Pulse Rate 120 Respiratory Rate 22 Blood Pressure [Left Arm] 153/76 Blood Pressure 152/73 O2 Sat by Pulse Oximetry 94 Intake and Output: Intake & Output 07/06/20 07/07/20 07/08/20 07/09/20 11:59 11:59 11:59 11:59 Intake Total 2075 / 5 4151 / 4151 4221 / 4221 Output Total 600 / 600 Balance 1475 / 1475 4151 / 4151 4221 / 4221 - Physical Exam Oriented: Normal Eyes: Normal Ear: Normal Nose: Normal Throat: Normal Respiratory: Generalized, Wheezes Cardiovascular: Normal : Normal Auscultation: Bowel Sounds: Normal Palpation: Normal Tenderness: Normal Skin: Normal Musculoskeletal: Normal Psychiatric: Normal Mood Description: Calm Affect: Normal Speech Pattern: Clear, Appropriate - Laboratory and Diagnostics Result Diagrams: 07/08/20 04:33 07/08/20 04:33 Labs: 07/05/20 14:05 Blood Blood Culture - Preliminary 07/05/20 14:10 Blood Blood Culture - Preliminary 07/05/20 17:30 Sputum - Expectorated Sputum Sputum Culture - Final 07/05/20 17:30 Sputum - Expectorated Sputum - Final Laboratory WBC 10.7 X10^3/uL (3.6-10.0) H 07/08/20 04:33 RBC 4.37 X10^6/uL (4.7-6.0) L 07/08/20 04:33 Hgb 12.9 g/dL (13.5-18.0) L 07/08/20 04:33 Hct 38.8 % (42.0-54.0) L 07/08/20 04:33 MCV 88.6 fL (80.0-100.0) 07/08/20 04:33 MCH 29.5 pg (27.0-34.0) 07/08/20 04:33 MCHC 33.3 g/dL (33.0-35.0) 07/08/20 04:33 RDW 15.4 % (11.6-16.5) 07/08/20 04:33 Plt Count 278 X10^3/uL (150.0-450.0) 07/08/20 04:33 MPV 7.6 fL (7.4-11.0) 07/08/20 04:33 Neut % (Auto) 88.3 % (42.0-75.0) H 07/08/20 04:33 Lymph % (Auto) 5.6 % (21.0-51.0) L 07/08/20 04:33 [place] % (Auto) 6.1 % (0.0-13.0) 07/08/20 04:33 Eos % (Auto) 0.0 % (0.9-2.9) L 07/08/20 04:33 Baso % (Auto) 0 % (0.2-1.0) L 07/08/20 04:33 Neut # (Auto) 9.4 x10^3/uL (2.2-4.8) H 07/08/20 04:33 Lymph # (Auto) 0.6 X10^3/uL (1.3-2.9) L 07/08/20 04:33 [place] # (Auto) 0.7 x10^3/uL (0.3-0.8) 07/08/20 04:33 Eos # (Auto) 0.0 x10^3/uL (0.0-0.2) 07/08/20 04:33 Baso # (Auto) 0.0 X10^3/uL (0.0-0.1) 07/08/20 04:33 Absolute Nucleated RBC 0.0 /100WBC 07/08/20 04:33 Sample Site Lr 07/08/20 05:08 ABG pH 7.420 (7.35-7.45) 07/08/20 05:08 ABG pCO2 41.0 mmHg (35.0-45.0) 07/08/20 05:08 ABG pO2 70.0 mmHg (80.0-100.0) L 07/08/20 05:08 ABG HCO3 26.6 mmol/L (22-26) H 07/08/20 05:08 ABG O2 Saturation 94.0 % (90-100) 07/08/20 05:08 ABG Base Excess 1.9 mmol/L (-2.0-2.0) 07/08/20 05:08 Van Test Pos 07/08/20 05:08 A-a Gradient 164.0 mmHg 07/08/20 05:08 FiO2 40 07/08/20 05:08 Blood Gas Comments Giancarlo well ae 07/08/20 05:08 Sodium 139 mmol/L (136-145) 07/08/20 04:33 Corrected Sodium 140 mmol/L (136-145) 07/08/20 04:33 Potassium 4.2 mmol/L (3.5-5.1) 07/08/20 04:33 Chloride 105 mmol/L (98-107) 07/08/20 04:33 Carbon Dioxide 24.3 mmol/L (21-32) 07/08/20 04:33 BUN 20 mg/dL (7-18) H 07/08/20 04:33 Creatinine 1.16 mg/dL (0.70-1.30) 07/08/20 04:33 Est GFR (MDRD) Af Amer > 60 (>60) 07/08/20 04:33 Est GFR (MDRD) Non-Af > 60 (>60) 07/08/20 04:33 Glucose 156 mg/dL (65-99) H 07/08/20 04:33 Lactic Acid 1.5 mmol/L (0.4-2.0) 07/05/20 14:10 Calcium 8.3 mg/dL (8.5-10.1) L 07/08/20 04:33 Corrected Calcium 9.2 mg/dL (8.5-10.1) 07/08/20 04:33 Ferritin 914 ng/mL (26-388) H 07/08/20 04:33 Total Bilirubin 0.50 mg/dL (0.2-1.0) 07/08/20 04:33 AST 30 Units/L (15-37) 07/08/20 04:33 ALT 46 Units/L (12-78) 07/08/20 04:33 Alkaline Phosphatase 50 Units/L (46-116) 07/08/20 04:33 C-Reactive Protein 19.50 mg/L (0-3.0) H 07/08/20 04:33 Total Protein 6.4 g/dL (6.4-8.2) 07/08/20 04:33 Albumin 2.9 g/dL (3.4-5.0) L 07/08/20 04:33 Globulin 3.5 g/dL (2.5-4.5) 07/08/20 04:33 Albumin/Globulin Ratio 0.8 Ratio (1.1-2.1) L 07/08/20 04:33 Specimen Type Clean catch urine 07/05/20 22:15 Urine Color Dark yellow (YELLOW) 07/05/20 22:15 Urine Appearance Clear (CLEAR) 07/05/20 22:15 Urine pH 6.5 (5.0 - 8.0) 07/05/20 22:15 Ur Specific [place] 1.015 (1.000-1.030) 07/05/20 22:15 Urine Protein 1+ (NEGATIVE) 07/05/20 22:15 Urine Glucose (UA) Negative (NEGATIVE) 07/05/20 22:15 Urine Ketones Negative (NEGATIVE) 07/05/20 22:15 Urine Occult Blood Negative (NEGATIVE) 07/05/20 22:15 Urine Nitrite Negative (NEGATIVE) 07/05/20 22:15 Urine Bilirubin Negative (NEGATIVE) 07/05/20 22:15 Urine Urobilinogen 2+ (NORMAL) 07/05/20 22:15 Ur Leukocyte Esterase Negative (NEGATIVE) 07/05/20 22:15 Urine RBC 0-2 /HPF (0-3) 07/05/20 22:15 Urine WBC None seen /HPF (0-5) 07/05/20 22:15 Ur Squamous Epith Cells Rare /HPF (NEGATIVE) 07/05/20 22:15 Urine Bacteria Negative /HPF (NEGATIVE) 07/05/20 22:15 Ur Culture Indicated? No/not indicated 07/05/20 22:15 Blood Type A NEGATIVE 07/05/20 15:50 Antibody Screen Negative 07/05/20 15:50 - Plan (1) Pneumonia due to 2019 novel coronavirus Status: Acute Plan: NS AT 125ML/HR, REMDESIVIR 100MG IV DAILY, SOLU-MEDROL 80MG IV Q8H, XOPENEX NEBS TID, PULMICORT NEBS BID, MUCOMYST IN NEB [place] BID, LOVENOX 40MG SC D AILY, TUSSIONEX 5ML PO Q12H, ROBITUSSIN DM 10ML PO QID, AND HOME MEDICATIONS WERE RESUMED. CONVALESCENT PLASMA WHEN AVAILABLE (2) Hypoxia Status: Acute
[2020-07-08] MEDS: TYLENOL 325 MG TAB PO PRN (21:06)
[2020-07-09] MEDS: NS 1000 ML 1,000 ML IV SCH ×2 (04:45→09:58)
[2020-07-09] MEDS: LOMOTIL PO PRN (05:16)
[2020-07-09] MEDS: SOLU-Medrol 40 MG VIAL IVP SCH ×2 (05:16→14:07)
[2020-07-09 06:06] LABS: ALANINE AMINOTRANSFERASE 54 Units/L (12-78); ALKALINE PHOSPHATASE 58 Units/L (46-116); ASPARTATE AMINO TRANSFERASE 30 Units/L (15-37); BLOOD UREA NITROGEN 23 mg/dL (7-18); CALCIUM 8.2 mg/dL (8.5-10.1); CARBON DIOXIDE 25.8 mmol/L (21-32); CHLORIDE 105 mmol/L (98-107); COR NA(FOR HYPERGLY) 141 mmol/L (136-145); CREATININE 1.12 mg/dL (0.70-1.30); SODIUM 140 mmol/L (136-145); TOTAL PROTEIN 6.6 g/dL (6.4-8.2); eGFR NON BLACK RACES > 60 (>60)
--- NOTE | 2020-07-09 06:13 | RAD ---
HISTORYSOBSTUDYCHEST, 1 [id number] trachea is midline. The cardiac silhouette is stable bilateral pulmonary opacities/infiltrates, slightly improved. Low lung volume, similar to prior exam.. The bony thorax is unremarkable.IMPRESSIONImproved pulmonary opacity/infiltrates.Electronically signed by: Chen Prescott (Jul 09, 2020 06:12:07)
[2020-07-09 06:17] LABS: BASOPHILS % (AUTO) 0.2 % (0.2-1.0); HEMATOCRIT 39.5 % (42.0-54.0); HEMOGLOBIN 13.2 g/dL (13.5-18.0); LYMPHOCYTES # (AUTO) 0.7 X10^3/uL (1.3-2.9); LYMPHOCYTES % (AUTO) 7.4 % (21.0-51.0); MEAN CORPUSCULAR HEMOGLOBIN 29.6 pg (27.0-34.0); MEAN CORPUSCULAR HGB CONC 33.5 g/dL (33.0-35.0); MEAN CORPUSCULAR VOLUME 88.4 fL (80.0-100.0); MEAN PLATELET VOLUME 7.5 fL (7.4-11.0); MONOCYTES # (AUTO) 0.6 x10^3/uL (0.3-0.8); MONOCYTES % (AUTO) 5.9 % (0.0-13.0); NEUTROPHILS # (AUTO) 8.5 x10^3/uL (2.2-4.8); NEUTROPHILS % (AUTO) 86.5 % (42.0-75.0); PLATELET COUNT 302 X10^3/uL (150.0-450.0); RED BLOOD COUNT 4.47 X10^6/uL (4.7-6.0); RED CELL DISTRIBUTION WIDTH 15.4 % (11.6-16.5); WHITE BLOOD COUNT 9.8 X10^3/uL (3.6-10.0)
[2020-07-09] MEDS: XOPENEX 1.25 MG/3 ML NEBULE NEB SCH ×2 (06:40→14:05)
[2020-07-09] MEDS: MUCOMYST (RESPIRATORY USE ONLY) NEB SCH ×2 (06:40→14:05)
[2020-07-09 06:41] LABS: ABG ALLEN TEST POS; ABG BASE EXCESS 3.3 mmol/L (-2.0-2.0); ABG HCO3 28.5 mmol/L (22-26)
[2020-07-09 07:25] LABS: BAND NEUTROPHILS % 4 % (0-10); PLATELET MORPHOLOGY COMMENT NORMAL (NORMAL)
--- NOTE | 2020-07-09 08:20 | PCM.PROG ---
Progress Note - Progress Note for Day of Date of Exam: 07/08/20 - Subjective Subjective: IS BEING TREATED FOR PNEUMONIA DUE TO COVID-19 AND HYPOXIA. TODAY, HE IS ALERT AND ORIENTED, LYING IN BED ON MORNING ROUNDS. HE CONTINUES WITH COMPLAINTS OF COUGH, SHORNTESS OF BREATH, AND WEAKNESS. HE DENIES SIGNIFICANT IMPROVEMENT SINCE YESTERDAY. HE CONTINUES TO UTILIZE OXYGEN VIA NASAL CANNULA AT 2L/MIN. ON EXAMINATION, HEART IS REGULAR IN RATE AND RHYTHM. BILATERAL LUNGS ARE NOTED WITH SCATTERED WHEEZING THROUGHOUT. ABDOMEN IS ROUND, SOFT, AND NON-TENDER WITH NORMAL BOWEL SOUNDS NOTED IN ALL QUADRANTS. HIS VITALS THIS MORNING ARE: 98.2-96-20-92%nc-155/91. LABS WERE OBTAINED. ABNORMAL LAB VALUES INCLUDE THE FOLLOWING: WBC 10.7, RBC 4.37, HGB 12.9, HCT 38.8, BUN 20, GLUCOSE 156, CALCIUM 8.3, FERRITIN 914, CRP 19.50, ALBUMIN 2.9. AN ABG WAS OBTAINED AND REVEALED: ph 7.420, pc02 41, p02 70, hc03 26.6, 02 sat 94, fi02 40. BLOOD AND SPUTUM CULTURES ARE PENDING. A CHEST XRAY WAS OBTAINED AND REVEALED: Cardiac silhouette is borderline in size. No significant change in diffuse bilateral airspace and interstitial opacities. No pleural effusion or pneumothorax. HE IS CURRENTLY RECEIVING NS AT 125ML/HR, REMDESIVIR 100MG IV DAILY, SOLU-MEDROL 80MG IV Q8H, XOPENEX NEBS TID, PULMICORT NEBS BID, MUCOMYST IN NEB [place] BID, LOVENOX 40MG SC DAILY, TUSSIONEX 5ML PO Q12H, ROBITUSSIN DM 10ML PO QID, AND HOME MEDICATIONS WERE RESUMED. HE RECEIVED ONE UNIT OF CONVALESCENT PLASMA THIS MORNING. WE WILL CONTINUE WITH CURRENT PLAN OF CARE TODAY. OTHERWISE, WE PLAN TO FOLLOW UP WITH AM LABS, CHEST XRAY, AND ABG AND CONTINUE TO MONITOR. - Past Medical Family Social History Past Med/Fam/Surg Hx: No changes since H&P Allergies: Allergies No Known Drug Allergies Allergy (Verified 07/05/20 13:23) - Review of Systems ROS: No change since H&P - Vital Signs and I&O's Vital Signs: Temperature 97.9 F Pulse Rate [Right Radial] 87 Pulse Rate 108 Respiratory Rate 20 Blood Pressure [Left Arm] 144/71 Blood Pressure 152/73 O2 Sat by Pulse Oximetry 94 Intake and Output: Intake & Output 07/06/20 07/07/20 07/08/20 07/09/20 11:59 11:59 11:59 11:59 Intake Total 2075 / 2075 4151 / 4151 4221 / 4221 4319 / 4319 Output Total 600 / 600 Balance 1475 / 1475 4151 / 4151 4221 / 4221 4319 / 4319 - Physical Exam Oriented: Normal Eyes: Normal Ear: Normal Nose: Normal Throat: Normal Respiratory: Generalized, Wheezes Cardiovascular: Normal : Normal Auscultation: Bowel Sounds: Normal Tenderness: Normal Skin: Normal Musculoskeletal: Normal Psychiatric: Normal Mood Description: Calm Affect: Normal Speech Pattern: Clear, Appropriate - Laboratory and Diagnostics Result Diagrams: 07/09/20 04:48 07/09/20 04:48 Labs: 07/05/20 14:05 Blood Blood Culture - Preliminary 07/05/20 14:10 Blood Blood Culture - Preliminary 07/05/20 17:30 Sputum - Expectorated Sputum Sputum Culture - Final 07/05/20 17:30 Sputum - Expectorated Sputum - Final Laboratory WBC 9.8 X10^3/uL (3.6-10.0) 07/09/20 04:48 RBC 4.47 X10^6/uL (4.7-6.0) L 07/09/20 04:48 Hgb 13.2 g/dL (13.5-18.0) L 07/09/20 04:48 Hct 39.5 % (42.0-54.0) L 07/09/20 04:48 MCV 88.4 fL (80.0-100.0) 07/09/20 04:48 MCH 29.6 pg (27.0-34.0) 07/09/20 04:48 MCHC 33.5 g/dL (33.0-35.0) 07/09/20 04:48 RDW 15.4 % (11.6-16.5) 07/09/20 04:48 Plt Count 302 X10^3/uL (150.0-450.0) 07/09/20 04:48 Plt Count Comment Adequate (ADEQUATE) 07/09/20 04:48 MPV 7.5 fL (7.4-11.0) 07/09/20 04:48 Neut % (Auto) 86.5 % (42.0-75.0) H 07/09/20 04:48 Lymph % (Auto) 7.4 % (21.0-51.0) L 07/09/20 04:48 [place] % (Auto) 5.9 % (0.0-13.0) 07/09/20 04:48 Eos % (Auto) 0.0 % (0.9-2.9) L 07/09/20 04:48 Baso % (Auto) 0.2 % (0.2-1.0) 07/09/20 04:48 Neut # (Auto) 8.5 x10^3/uL (2.2-4.8) H 07/09/20 04:48 Lymph # (Auto) 0.7 X10^3/uL (1.3-2.9) L 07/09/20 04:48 [place] # (Auto) 0.6 x10^3/uL (0.3-0.8) 07/09/20 04:48 Eos # (Auto) 0.0 x10^3/uL (0.0-0.2) 07/09/20 04:48 Baso # (Auto) 0.0 X10^3/uL (0.0-0.1) 07/09/20 04:48 Absolute Nucleated RBC 0.0 /100WBC 07/09/20 04:48 Total Counted 100 07/09/20 04:48 Neutrophils % (Manual) 80 % (39-76) H 07/09/20 04:48 Band Neutrophils % 4 % (0-10) 07/09/20 04:48 Lymphocytes % (Manual) 10 % (13-43) L 07/09/20 04:48 Monocytes % (Manual) 6 % (4-9) 07/09/20 04:48 Plt Morphology Comment Normal (NORMAL) 07/09/20 04:48 RBC Morphology Normal (NORMAL) 07/09/20 04:48 Sample Site [place]rad 07/09/20 06:34 ABG pH 7.410 (7.35-7.45) 07/09/20 06:34 ABG pCO2 45.0 mmHg (35.0-45.0) 07/09/20 06:34 ABG pO2 83.0 mmHg (80.0-100.0) 07/09/20 06:34 ABG HCO3 28.5 mmol/L (22-26) H 07/09/20 06:34 ABG O2 Saturation 96.0 % (90-100) 07/09/20 06:34 ABG Base Excess 3.3 mmol/L (-2.0-2.0) H 07/09/20 06:34 Van Test Pos 07/09/20 06:34 A-a Gradient 146.0 mmHg 07/09/20 06:34 FiO2 40.0 07/09/20 06:34 Blood Gas Comments Giancarlo abg well-mtf 07/09/20 06:34 Sodium 140 mmol/L (136-145) 07/09/20 04:48 Corrected Sodium 141 mmol/L (136-145) 07/09/20 04:48 Potassium 4.1 mmol/L (3.5-5.1) 07/09/20 04:48 Chloride 105 mmol/L (98-107) 07/09/20 04:48 Carbon Dioxide 25.8 mmol/L (21-32) 07/09/20 04:48 BUN 23 mg/dL (7-18) H 07/09/20 04:48 Creatinine 1.12 mg/dL (0.70-1.30) 07/09/20 04:48 Est GFR (MDRD) Af Amer > 60 (>60) 07/09/20 04:48 Est GFR (MDRD) Non-Af > 60 (>60) 07/09/20 04:48 Glucose 149 mg/dL (65-99) H 07/09/20 04:48 Lactic Acid 1.5 mmol/L (0.4-2.0) 07/05/20 14:10 Calcium 8.2 mg/dL (8.5-10.1) L 07/09/20 04:48 Corrected Calcium 9.0 mg/dL (8.5-10.1) 07/09/20 04:48 Ferritin 926 ng/mL (26-388) H 07/09/20 04:48 Total Bilirubin 0.70 mg/dL (0.2-1.0) 07/09/20 04:48 AST 30 Units/L (15-37) 07/09/20 04:48 ALT 54 Units/L (12-78) 07/09/20 04:48 Alkaline Phosphatase 58 Units/L (46-116) 07/09/20 04:48 C-Reactive Protein 12.10 mg/L (0-3.0) H 07/09/20 04:48 Total Protein 6.6 g/dL (6.4-8.2) 07/09/20 04:48 Albumin 3.0 g/dL (3.4-5.0) L 07/09/20 04:48 Globulin 3.6 g/dL (2.5-4.5) 07/09/20 04:48 Albumin/Globulin Ratio 0.8 Ratio (1.1-2.1) L 07/09/20 04:48 Specimen Type Clean catch urine 07/05/20 22:15 Urine Color Dark yellow (YELLOW) 07/05/20 22:15 Urine Appearance Clear (CLEAR) 07/05/20 22:15 Urine pH 6.5 (5.0 - 8.0) 07/05/20 22:15 Ur Specific [place] 1.015 (1.000-1.030) 07/05/20 22:15 Urine Protein 1+ (NEGATIVE) 07/05/20 22:15 Urine Glucose (UA) Negative (NEGATIVE) 07/05/20 22:15 Urine Ketones Negative (NEGATIVE) 07/05/20 22:15 Urine Occult Blood Negative (NEGATIVE) 07/05/20 22:15 Urine Nitrite Negative (NEGATIVE) 07/05/20 22:15 Urine Bilirubin Negative (NEGATIVE) 07/05/20 22:15 Urine Urobilinogen 2+ (NORMAL) 07/05/20 22:15 Ur Leukocyte Esterase Negative (NEGATIVE) 07/05/20 22:15 Urine RBC 0-2 /HPF (0-3) 07/05/20 22:15 Urine WBC None seen /HPF (0-5) 07/05/20 22:15 Ur Squamous Epith Cells Rare /HPF (NEGATIVE) 07/05/20 22:15 Urine Bacteria Negative /HPF (NEGATIVE) 07/05/20 22:15 Ur Culture Indicated? No/not indicated 07/05/20 22:15 Blood Type A NEGATIVE 07/05/20 15:50 Antibody Screen Negative 07/05/20 15:50 - Plan (1) Pneumonia due to 2019 novel coronavirus Status: Acute Plan: NS AT 125ML/HR, REMDESIVIR 100MG IV DAILY, SOLU-MEDROL 80MG IV Q8H, XOPENEX NEBS TID, PULMICORT NEBS BID, MUCOMYST IN NEB [place] BID, LOVENOX 40MG SC DAILY, TUSSIONEX 5ML PO Q12H, ROBITUSSIN DM 10ML PO QID, AND HOME MEDICATIONS WERE RESUMED. (2) Hypoxia Status: Acute
[2020-07-09] MEDS: PULMICORT NEB TX 0.5 MG NEB SCH (09:00)
[2020-07-09] MEDS: TUSSIONEX PENNKINETIC SUSP PO SCH (09:23)
[2020-07-09] MEDS: ZYLOPRIM PO SCH (09:24)
[2020-07-09] MEDS: ROBITUSSIN DM PO SCH ×2 (09:24→13:13)
[2020-07-09] MEDS: LOVENOX INJ 40 MG SYR SC SCH (09:25)
[2020-07-09] MEDS: PROTONIX TAB 40 MG PO SCH (09:25)
[2020-07-09] MEDS: LIPITOR TAB 40 MG PO SCH (09:26)
[2020-07-09] MEDS: VASOTEC TAB 10 MG PO SCH (09:30)
[2020-07-09] MEDS: REMDESIVIR (INVESTIGATIONAL DRUG GS-5734) 100 MG in NS 250 ML IV 250 ML IV SCH (09:31)
[2020-07-09 16:27] VITALS: BP 149/82
== END 2020-07-09 16:10 | disposition home or self-care (01) | DRG 177 ==
LOC: ER 13:22 → MED/SURG 15:25
PROVIDERS: ADMIT Internal Medicine; ATTEND Internal Medicine
DX: J12.9 Viral pneumonia, unspecified; R06.02 Shortness of breath; E78.5 Hyperlipidemia, unspecified; I10 Essential (primary) hypertension; K21.9 Gastro-esophageal reflux disease without esophagitis; R19.7 Diarrhea, unspecified; U07.1 COVID-19; M10.9 Gout, unspecified; R09.02 Hypoxemia